=== PATIENT | male | born 1960 | race African-American/Black ===

== ENCOUNTER 2020-09-23 13:20 | Emergency (ER) | payer MEDICARE, OTHER ==
--- NOTE | 2020-09-23 15:26 | EDM.PDOC ---
ED HPI GENERAL MEDICAL PROBLEM - General Chief Complaint: General Stated Complaint: NEEDS TO BE SET UP FOR DIALYSIS Time Seen by Provider: 09/23/20 13:50 Source of Information: Reports: Patient, Family History Limitations: Reports: No Limitations - History of Present Illness INITIAL COMMENTS - FREE TEXT/NARRATIVE: The patient presents for dialysis. The patient is in chronic renal failure on dialysis Tuesdays, and Saturdays. His last dialysis was on Monday in [place] where he is from. He moved here to be with family. He has a history of hypertension, strokes, and renal failure. He has no symptoms at this time like fever, chills, cough, congestion, runny nose, chest pain, shortness of breath, abdominal pain, nausea or vomiting. Onset: Gradual Duration: Day(s): Improves with: Reports: None Worsens with: Reports: None Associated Symptoms: Reports: No Other Symptoms - Related Data Allergies Allergy/AdvReac Type Severity Reaction Status Date / Time No Known Allergies Allergy Verified 09/23/20 13:48 Past Medical History Cardiovascular History: Reports: Hypertension Genitourinary History: Reports: Dialysis Other Genitourinary History: states had kidney failure due to HTN/past strokes. Neurological History: Reports: CVA, Other (See Below) Other Neuro History: states has had 3 prior strokes--states has HTN. Hematologic History: Reports: Blood Transfusion(s) - Infectious Disease History Infectious Disease History: Reports: Chicken Pox Social & Family History - Tobacco Use Tobacco Use Status *Q: Never Tobacco User Second Hand Smoke Exposure: No - Caffeine Use Caffeine Use: Reports: None - Recreational Drug Use Recreational Drug Type: Reports: Marijuana/Hashish ED ROS GENERAL - Review of Systems Review Of Systems: See Below Constitutional: Reports: No Symptoms HEENT: Reports: No Symptoms Respiratory: Reports: No Symptoms Cardiovascular: Reports: No Symptoms Endocrine: Reports: No Symptoms GI/Abdominal: Reports: No Symptoms : Reports: No Symptoms Musculoskeletal: Reports: No Symptoms ED EXAM, GENERAL - Physical Exam Exam: See Below Exam Limited By: No Limitations General Appearance: Alert, No Apparent Distress Ears: Normal External Exam Nose: Normal Inspection Head: Atraumatic, Normocephalic Neck: Normal Inspection Respiratory/Chest: No Respiratory Distress, Lungs Clear, Normal Breath Sounds Cardiovascular: Regular Rate, Rhythm, No Edema, No Murmur GI/Abdominal: Soft, Non-Tender, No Organomegaly, No Mass Back Exam: Normal Inspection Extremities: Normal Inspection Course - Vital Signs Last Recorded V/S: Last Vital Signs Temp 98.4 F 09/23/20 13:40 Pulse 54 L 09/23/20 13:40 Resp 16 09/23/20 13:40 BP 183/81 H 09/23/20 13:40 Pulse Ox 99 09/23/20 13:40 - Orders/Labs/Meds Orders: Active Orders 24 hr Category Date Time Status Cardiac Monitoring [RC] . DIRECTED Care 09/23/20 14:17 Active EKG Documentation Completion [RC] ASDIRECTED Care 09/23/20 15:24 Active Peripheral IV Care [RC] . DIRECTED Care 09/23/20 15:29 Active RT Aerosol Therapy [RC] ASDIRECTED Care 09/23/20 15:30 Active CORONAVIRUS COVID-19 GIULIANO [MOLEC] Stat Lab 09/23/20 15:55 Ordered Sodium Chloride 0.9% [Saline Flush] Med 09/23/20 15:29 Active 10 ml FLUSH ASDIRECTED PRN Peripheral IV Insertion Adult [OM.PC] Routine Oth 09/23/20 15:29 Ordered EKG 12 Lead [EK] Stat Ther 09/23/20 15:23 Ordered Medication Orders Sodium Chloride (Saline Flush) 10 ml FLUSH ASDIRECTED PRN PRN Reason: Keep Vein Open Labs: Laboratory Tests 09/23/20 09/23/20 Range/Units 14:43 14:43 WBC 5.33 (4.23-9.07) K/mm3 RBC 2.99 L (4.63-6.08) M/mm3 Hgb 10.9 L (13.7-17.5) gm/dl Hct 33.2 L (40.1-51.0) % MCV 111.0 H (79.0-92.2) fl MCH 36.5 H (25.7-32.2) pg MCHC 32.8 (32.2-35.5) g/dl RDW Std Deviation 52.8 H (35.1-43.9) fL Plt Count 167 (163-337) K/mm3 MPV 10.7 (9.4-12.3) fl Neut % (Auto) 56.2 (34.0-67.9) % Lymph % (Auto) 21.2 L (21.8-53.1) % [place] % (Auto) 17.1 H (5.3-12.2) % Eos % (Auto) 4.5 (0.8-7.0) Baso % (Auto) 0.6 (0.1-1.2) % Neut # (Auto) 3.00 (1.78-5.38) K/mm3 Lymph # (Auto) 1.13 L (1.32-3.57) K/mm3 [place] # (Auto) 0.91 H (0.30-0.82) K/mm3 Eos # (Auto) 0.24 (0.04-0.54) K/mm3 Baso # (Auto) 0.03 (0.01-0.08) K/mm3 Manual Slide Review Abnormal smear Sodium 140 (136-145) mEq/L Potassium 6.6 H* (3.5-5.1) mEq/L Chloride 99 (98-107) mEq/L Carbon Dioxide 24 (21-32) mEq/L Anion Gap 23.6 H (5-15) BUN 104 H (7-18) mg/dL Creatinine 16.0 H (0.7-1.3) mg/dL Est Cr Clr Drug Dosing 5.42 mL/min Estimated GFR (MDRD) 4 (>60) mL/min BUN/Creatinine Ratio 6.5 L (14-18) Glucose 90 (74-106) mg/dL Calcium 8.4 L (8.5-10.1) mg/dL Phosphorus 5.5 H (2.6-4.7) mg/dL Magnesium 2.3 (1.8-2.4) mg/dl Total Bilirubin 0.4 (0.2-1.0) mg/dL AST 18 (15-37) U/L ALT 29 (16-63) U/L Alkaline Phosphatase 72 (46-116) U/L Total Protein 7.5 (6.4-8.2) g/dl Albumin 3.6 (3.4-5.0) g/dl Globulin 3.9 gm/dL Albumin/Globulin Ratio 0.9 L (1-2) Meds: Medications Generic Name Dose Route Start Last Admin Trade Name Freq PRN Reason Stop Dose Admin Sodium Chloride 10 ml 09/23/20 15:29 Saline Flush FLUSH ASDIRECTED PRN Keep Vein Open Discontinued Medications Generic Name Dose Route Start Last Admin Trade Name Cintia PRN Reason Stop Dose Admin Albuterol 2.5 mg 09/23/20 15:30 Proventil Neb Soln NEB 09/23/20 15:31 ONETIME ONE Calcium Gluconate 1 gm 09/23/20 15:33 Calcium Gluconate IVPUSH 09/23/20 15:34 ONETIME ONE Dextrose/Water 50 ml 09/23/20 15:31 Dextrose 50% In Water IVPUSH 09/23/20 15:32 ONETIME ONE Insulin Human Regular 10 unit 09/23/20 15:32 Humulin R SUBCUT 09/23/20 15:33 ONETIME ONE Sodium Polystyrene Sulfonate 45 gm 09/23/20 15:30 Kayexalate PO 09/23/20 15:31 NOW ONE - Re-Assessments/Exams Free Text/Narrative Re-Assessment/Exam: 09/23/20 16:14 I ordered labs. His Hgb was a little low at 10.9. His platelets are low at 52.8. His K was elevated at 6.6. His anion gap was elevated at 23.6. His creatinine is 16. His phosphorus is 5.5. I ordered an EKG that shows a NSR with no acute changes. I also ordered an IV saline lock, kayexilate 45mg PO, D50 25grams, insulin R 10 units subcutaneous, albuterol and calcium gluconate 1 gram IV. I called [facility] in [place] and talked with Dr Solano the nephrolgist environmental services attendant and Dr Ibarra the hospitalist and he agreed to the transfer. Departure - Departure Time of Disposition: 16:20 Disposition: DC/Tfer to Acute Hospital 02 Condition: Fair Clinical Impression: Chronic kidney disease with end stage renal failure on dialysis, Hyperkalemia - Discharge Information Referrals: PCP,Not In Area [Primary Care Provider] - Forms: ED Department Discharge Sepsis Event Note (ED) - Evaluation Sepsis Screening Result: No Definite Risk - Focused Exam Vital Signs: Vital Signs Temp Pulse Resp BP Pulse Ox 09/23/20 13:40 98.4 F 54 L 16 183/81 H 99 - My Orders Last 24 Hours: My Active Orders 09/23/20 14:17 Cardiac Monitoring [RC] . DIRECTED 09/23/20 15:23 EKG 12 Lead [EK] Stat 09/23/20 15:24 EKG Documentation Completion [RC] ASDIRECTED 09/23/20 15:29 Peripheral IV Care [RC] . DIRECTED Sodium Chloride 0.9% [Saline Flush] 10 ml FLUSH ASDIRECTED PRN Peripheral IV Insertion Adult [OM.PC] Routine 09/23/20 15:30 RT Aerosol Therapy [RC] ASDIRECTED 09/23/20 15:55 CORONAVIRUS COVID-19 GIULIANO [MOLEC] Stat - Assessment/Plan Last 24 Hours: My Active Orders 09/23/20 14:17 Cardiac Monitoring [RC] . DIRECTED 09/23/20 15:23 EKG 12 Lead [EK] Stat 09/23/20 15:24 EKG Documentation Completion [RC] ASDIRECTED 09/23/20 15:29 Peripheral IV Care [RC] . DIRECTED Sodium Chloride 0.9% [Saline Flush] 10 ml FLUSH ASDIRECTED PRN Peripheral IV Insertion Adult [OM.PC] Routine 09/23/20 15:30 RT Aerosol Therapy [RC] ASDIRECTED 09/23/20 15:55 CORONAVIRUS COVID-19 GIULIANO [MOLEC] Stat
[2020-09-23] MEDS ORDERED: Sodium Chloride 0.9% 10 ML Syringe FLUSH PRN (15:29)
[2020-09-23] MEDS ORDERED: Sodium Polystyrene Sulfonate 15 GM/60 ML Susp 60 ML Bot PO ONE (15:30)
[2020-09-23] MEDS ORDERED: Albuterol 0.083% 2.5 MG/3 ML Neb Soln NEB ONE (15:30)
[2020-09-23] MEDS ORDERED: 50% Dextrose in Water 50 ML Syringe IVPUSH ONE (15:31)
[2020-09-23] MEDS ORDERED: Insulin Regular, Human 100 Units/ML 3 ML Vial SUBCUT ONE (15:32)
[2020-09-23] MEDS ORDERED: Calcium Gluconate 10% 1 GM/10 ML SDV IVPUSH ONE (15:33)
[2020-09-23] MEDS ORDERED: HYDROmorphone 0.5 MG/0.5 ML Syringe IVPUSH ONE (17:12)
== END 2020-09-23 18:10 ==
LOC: JD.ED 13:20
DX: I12.0 Hypertensive chronic kidney disease with stage 5 chronic kidney disease or end stage renal disease (principal); N18.6 End stage renal disease; E87.5 Hyperkalemia; Z99.2 Dependence on renal dialysis; Z86.73 Personal history of transient ischemic attack (TIA), and cerebral infarction without residual deficits; Z20.822 Contact with and (suspected) exposure to COVID-19
CPT/HCPCS: 36415; 80053; 83735; 84100; 85025; 93005; 94640; 96374; 96375; 99284; 99284-25; A9270-GY; J0610; J1170; J1815-GY; U0002